=== PATIENT | female | born 1955 | race American Indian/Alaskan Native ===

== ENCOUNTER 2020-05-26 17:23 | Emergency (ER) | payer MEDICARE ==
--- NOTE | 2020-05-26 18:42 | XRay Report ---
CHEST 2 VIEWS INDICATION / CLINICAL INFORMATION: Chest Pain. COMPARISON: None available. FINDINGS: SUPPORT DEVICES: None. HEART / MEDIASTINUM: No significant abnormality. LUNGS / PLEURA: No significant pulmonary or pleural abnormality. No pneumothorax. ADDITIONAL FINDINGS: Right DIGITAL COORDINATOR shunt catheter is noted. IMPRESSION: 1. No acute findings. Signer Name: Patrice Girard MD Signed: 05/26/2020 6:38 PM Workstation Name: [id number]
[2020-05-26 20:13] LABS: Basophils # (Auto) 0.1 K/mm3 (0.0-0.1); Basophils % (Auto) 1.3 % (0.0-1.8); Eosinophils # (Auto) 0.1 K/mm3 (0.0-0.4); Eosinophils % (Auto) 1.1 % (0.0-4.3); Hematocrit 38.6 % (30.3-42.9); Hemoglobin 12.4 gm/dl (10.1-14.3); Lymphocytes # (Auto) 3.3 K/mm3 (1.2-5.4); Lymphocytes % (Auto) 46.4 % (13.4-35.0); Mean Corpuscular HGB Conc 32 % (30-34); Mean Corpuscular Volume 81 fl (79-97); Monocytes # (Auto) 0.6 K/mm3 (0.0-0.8); Monocytes % (Auto) 7.8 % (0.0-7.3); Platelet Count 368 K/mm3 (140-440); Red Blood Count 4.77 M/mm3 (3.65-5.03); Red Cell Distribution Width 15.8 % (13.2-15.2)
[2020-05-26 20:33] LABS: Alanine Aminotransferase 19 units/L (7-56); Albumin 4.3 g/dL (3.9-5); Blood Urea Nitrogen 11 mg/dL (7-17); Calcium 9.9 mg/dL (8.4-10.2); Hemolysis Index 16
[2020-05-26 20:34] LABS: BUN/Creatinine Ratio 22
--- NOTE | 2020-05-26 22:08 | Emergency Department Report ---
ED Chest Pain HPI - General Chief Complaint: Chest Pain Stated Complaint: CHEST PAIN Time Seen by Provider: 05/26/20 18:02 Source: patient Mode of arrival: Wheelchair Limitations: Other - History of Present Illness Initial Comments: 64-year-old female the past medical history of hydrocephalus with POULTRY TENDER shunt, elevated cholesterol, and chronic memory problems presents to the hospital with triage complaint of chest pain x2-day, midabdominal pain x1 week, and diarrhea, and shortness of breath. Patient is a very poor historian. She indicates she is having right-sided chest pain x1 month with some mild shortness of breath. She complains of cough without fevers. She complains of abdominal pain and diarrhea. Patient also is only oriented to self, states year is September, and knows she is in the hospital but she does not know which hospital. She also has melina on the right side of her scalp from recent neurosurgery but cannot tell me what was done and how long ago melina were placed. Patient answers I do not know to a lot of questions I had to call patient's sister for collateral information. Patient states her sister is Jo and she is in the waiting room. No one answered to oJ in the waiting room. I called Veronica Boss as indicated by the demographic sheet. Veronica Boss (not Jo) is the patient's sister and they live together. He states that patient only began complaining of chest pain today. She has not complained of abdominal pain or had diarrhea and thinks she is likely experiencing abdominal pain because she has not hungry and has not eaten all day. 2 weeks ago she had revision of POULTRY TENDER shunt because it was blocked and is due to have melina removed at [facility] tomorrow. There are no reports of vomiting, fever, or respiratory distress. Sister also reports that patient has had problems with her memory for at least 1 year. As per previous medical record review patient was here May 14 with request for additional pain medications as they were unable to fill oxycodone that was prescribed after her recent surgery - Related Data Previous Rx's Medication Instructions Recorded Last Taken Type oxyCODONE /ACETAMINOPHEN [Percocet 1 tab PO Q6HR PRN #10 tablet 05/15/20 Unknown Rx 5/325] Allergies Allergy/AdvReac Type Severity Reaction Status Date / Time egg Allergy Unknown Verified 05/26/20 18:09 aspirin AdvReac GI upset Verified 05/26/20 18:02 Heart Score - HEART Score History: Slightly suspicious EKG: Non-specific Age: 45-65 Risk factors: 1-2 risk factors Troponin: < normal limit HEART Score: 3 ED Review of Systems ROS: Stated complaint: CHEST PAIN Other details as noted in HPI Comment: All other systems reviewed and negative ED Past Medical Hx - Past Medical History Previous Medical History?: Yes Additional medical history: encephalitis, hydrocephalus, high cholesterol - Surgical History Past Surgical History?: Yes Additional Surgical History: POULTRY TENDER shunt, feeding tube insertion and removal - Social History Smoking Status: Never Smoker Substance Use Type: None - Medications Home Medications: Home Medications Medication Instructions Recorded Confirmed Last Taken Type oxyCODONE /ACETAMINOPHEN [Percocet 1 tab PO Q6HR PRN #10 tablet 05/15/20 Unknown Rx 5/325] ED Physical Exam - General Limitations: No Limitations - Other Other exam information: General: No acute distress Head: Right scalp melina with scalp POULTRY TENDER shunt reservoir Eyes: normal appearance ENT: Moist mucous membranes Neck: Normal appearance, no midline tenderness Chest: Clear to auscultation bilaterally, reproducible right-sided anterior chest wall pain and sternal chest pain to palpation CV: Regular rate and rhythm Abdomen: Soft, normal bowel sounds, nontender, nondistended, no rebound or guarding Back: Normal inspection Extremity: Normal inspection, full range of motion, no calf tenderness or leg edema Neuro: Alert O x 1, no facial asymmetry, speech clear, no gross motor sensory deficit Psych: Appropriate behavior Skin: No rash, ED Course Vital Signs 05/26/20 18:05 Temperature 97.6 F Pulse Rate 64 Respiratory 16 Rate Blood Pressure 140/78 O2 Sat by Pulse 100 Oximetry ED Medical Decision Making - Lab Data Result diagrams: 05/26/20 19:29 05/26/20 19:29 Lab Results 05/26/20 05/26/20 05/26/20 Range/Units 19:29 19:29 21:43 WBC 7.1 (4.5-11.0) K/mm3 RBC 4.77 (3.65-5.03) M/mm3 Hgb 12.4 (10.1-14.3) gm/dl Hct 38.6 (30.3-42.9) % MCV 81 (79-97) fl MCH 26 L (28-32) pg MCHC 32 (30-34) % RDW 15.8 H (13.2-15.2) % Plt Count 368 (140-440) K/mm3 Lymph % (Auto) 46.4 H (13.4-35.0) % Lap[place] % (Auto) 7.8 H (0.0-7.3) % Eos % (Auto) 1.1 (0.0-4.3) % Baso % (Auto) 1.3 (0.0-1.8) % Lymph # 3.3 (1.2-5.4) K/mm3 [place]orte # 0.6 (0.0-0.8) K/mm3 Eos # 0.1 (0.0-0.4) K/mm3 Baso # 0.1 (0.0-0.1) K/mm3 Seg Neutrophils % 43.4 (40.0-70.0) % Seg Neutrophils # 3.1 (1.8-7.7) K/mm3 Sodium 139 (137-145) mmol/L Potassium 4.0 (3.6-5.0) mmol/L Chloride 102.9 (98-107) mmol/L Carbon Dioxide 23 (22-30) mmol/L Anion Gap 17 mmol/L BUN 11 (7-17) mg/dL Creatinine 0.5 L (0.6-1.2) mg/dL Estimated GFR > 60 ml/min BUN/Creatinine Ratio 22 % Glucose 95 (65-100) mg/dL Calcium 9.9 (8.4-10.2) mg/dL Total Bilirubin 0.20 (0.1-1.2) mg/dL AST 20 (5-40) units/L ALT 19 (7-56) units/L Alkaline Phosphatase 95 (35-129) units/L Troponin T < 0.010 (0.00-0.029) ng/mL Total Protein 7.8 (6.3-8.2) g/dL Albumin 4.3 (3.9-5) g/dL Albumin/Globulin Ratio 1.2 % Lipase 58 (13-60) units/L 05/26/20 Range/Units 22:29 WBC (4.5-11.0) K/mm3 RBC (3.65-5.03) M/mm3 Hgb (10.1-14.3) gm/dl Hct (30.3-42.9) % MCV (79-97) fl MCH (28-32) pg MCHC (30-34) % RDW (13.2-15.2) % Plt Count (140-440) K/mm3 Lymph % (Auto) (13.4-35.0) % [place] % (Auto) (0.0-7.3) % Eos % (Auto) (0.0-4.3) % Baso % (Auto) (0.0-1.8) % Lymph # (1.2-5.4) K/mm3 [place] # (0.0-0.8) K/mm3 Eos # (0.0-0.4) K/mm3 Baso # (0.0-0.1) K/mm3 Seg Neutrophils % (40.0-70.0) % Seg Neutrophils # (1.8-7.7) K/mm3 Sodium (137-145) mmol/L Potassium (3.6-5.0) mmol/L Chloride (98-107) mmol/L Carbon Dioxide (22-30) mmol/L Anion Gap mmol/L BUN (7-17) mg/dL Creatinine (0.6-1.2) mg/dL Estimated GFR ml/min BUN/Creatinine Ratio % Glucose (65-100) mg/dL Calcium (8.4-10.2) mg/dL Total Bilirubin (0.1-1.2) mg/dL AST (5-40) units/L ALT (7-56) units/L Alkaline Phosphatase (35-129) units/L Troponin T < 0.010 (0.00-0.029) ng/mL Total Protein (6.3-8.2) g/dL Albumin (3.9-5) g/dL Albumin/Globulin Ratio % Lipase (13-60) units/L - EKG Data -: EKG Interpreted by Mo EKG shows normal: sinus rhythm, ST-T waves (no stemi, lvh) Rate: normal - Radiology Data Radiology results: report reviewed CHEST 2 VIEWS INDICATION / CLINICAL INFORMATION: Chest Pain. COMPARISON: None available. FINDINGS: SUPPORT DEVICES: None. HEART / MEDIASTINUM: No significant abnormality. LUNGS / PLEURA: No significant pulmonary or pleural abnormality. No pneumothorax. ADDITIONAL FINDINGS: Right POULTRY TENDER shunt catheter is noted. IMPRESSION: 1. No acute findings. - Medical Decision Making Patient presents today hospital with reproducible musculoskeletal sternal and right-sided chest wall pain without any EKG findings of ischemia, without hypoxia, no tachypnea, and patient has a negative troponin x2. Patient received 1 Percocet for pain with symptomatic relief. Abdomen nontender on exam and sis ter denies initial triage claims of abdominal pain and diarrhea. Patient was also food in the ED and tolerated it well. Patient has a afternoon appointment with the neurosurgeons at [facility]. Sister reports that they have 1 oxycodone left. I will defer to her primary doctor/neurosurgeon providers to refill her pain medication as needed Critical Care Time: No Critical care attestation.: If time is entered above; I have spent that time in minutes in the direct care of this critically ill patient, excluding procedure time. ED Disposition Clinical Impression: Chest wall pain, Memory problem Disposition: DC-01 TO HOME OR SELFCARE Is pt being admited?: No Does the pt Need Aspirin: No Condition: Stable Instructions: Costochondritis (ED) Additional Instructions: Continue your current pain medication as prescribed. Follow-up with your doctor or doctor/clinic provided. Return if symptoms worsen as indicated by your discharge instructions. Referrals: PRIMARY CARE, [Primary Care Provider] - 3-5 Days your, neurosurgeon [Other] - 05/27/20 (follow up as scheduled) Time of Disposition: 00:10
[2020-05-26] MEDS ORDERED: oxyCODONE /ACETAMINOPHEN 5-325MG TAB PO ONE (23:16)
[2020-05-27 00:16] VITALS: BP 154/86
== END 2020-05-27 00:30 | disposition home or self-care (01) ==
LOC: ED 17:23
DX: R07.89 Other chest pain (principal); Z79.899 Other long term (current) drug therapy; Z91.012 Allergy to eggs; Z88.6 Allergy status to analgesic agent
CPT/HCPCS: 36415; 71046; 80053; 83690; 84484; 85025; 93005

== ENCOUNTER 2021-12-15 16:12 | Outpatient (CLI) | payer OTHER, MEDICARE ==
--- NOTE | 2021-12-16 09:00 | XRay Report ---
SKULL 2 VIEWS CHEST 1 VIEW ABDOMEN 1 VIEW INDICATION: SHUNT SERIES. COMPARISON: None. IMPRESSION: There appear to be 2 ventriculoperitoneal shunts which descends the right neck, right ch est and terminate in the mid right abdomen. No obvious discontinuity is detected single view of the chest demonstrates mild right perihilar opacities which could represent infiltrate or chronic scarrin g. The lungs are clear otherwise. The bowel gas pattern is within normal limits although there is mod erate fecal retention throughout the colon. Signer Name: Rhett Sanderson Jr, MD Signed: 12/16/2021 8:55 AM Workstation Name: [id number]
== END 2021-12-15 16:13 | disposition home or self-care (01) ==
LOC: XRAY 16:12
PROVIDERS: ATTEND Physical Medicine & Rehabilitation
DX: K56.41 Fecal impaction (principal)
CPT/HCPCS: 70250; 71045; 74018